=== PATIENT | female | born 1995 | race African-American/Black ===

== ENCOUNTER 2018-05-16 14:55 | Emergency (ER) | payer MEDICAID ==
[~2018-05-16] VITALS: Ht 170.2 cm; Wt 100.0 kg
[2018-05-16] MEDS ORDERED: ACETAMINOPHEN 325 MG TABLET PO ONE (15:30)
[2018-05-16] MEDS ORDERED: ACETAMINOPHEN 500 MG TABLET ONE (15:32)
[2018-05-16 16:36] VITALS: BP 110/68
== END 2018-05-16 16:46 | disposition home or self-care (01) ==
LOC: ED 15:20
DX: S14.5XXA Injury of cervical sympathetic nerves, initial encounter (principal); S09.93XA Unspecified injury of face, initial encounter; Y04.8XXA Assault by other bodily force, initial encounter; Y93.89 Activity, other specified; Y92.009 Unspecified place in unspecified non-institutional (private) residence as the place of occurrence of the external cause; Y99.8 Other external cause status
CPT/HCPCS: 72125; 99284